=== PATIENT | male | born 1945 | race Caucasian/White ===

== ENCOUNTER 2017-05-24 11:08 | Inpatient (IN) | payer MEDICARE ==
[~2017-05-24] VITALS: Ht 180.3 cm; Wt 78.9 kg
[~2017-05-24 11:08] MED LIST: AMLO5TAB2 PO; ASPI-496 PO; CETI10TA24 PO; CHOL200024 PO; DOCU-180 PO; FLUO10TA PO; HYDR-3241 PO; LISI-170 PO; METO25TA35 PO; NAPR220T77 PO; OMEG-76 PO; OMEP-110 PO; OXYC-302 PO; SIMV20TA3 PO; TRAZ50TA18 PO; VITA1TAB19 PO
[2017-05-24] MEDS ORDERED: SODIUM CHLORIDE 0.9% 1,000 ML IV ONE (11:54)
[2017-05-24] MEDS ORDERED: SODIUM CHLORIDE FLUSH 10ML SYR IVF ONE (12:00)
[2017-05-24 12:25] LABS: BASOPHILS # (AUTO) 0.02 x10^3/uL (0-0.1); BASOPHILS % (AUTO) 0 % (0-1); EOSINOPHILS # (AUTO) 0.06 x10^3/uL (0-0.4); EOSINOPHILS % (AUTO) 1 % (1-7); LYMPHOCYTES % (AUTO) 10 % (22-44); MD NO; MEAN CORPUSCULAR HEMOGLOBIN 31.5 pg (27.5-34.5); MEAN CORPUSCULAR HGB CONC 34.2 g/dL (33.2-36.2); MEAN CORPUSCULAR VOLUME 92.2 fL (81-97); MEAN PLATELET VOLUME 8.3 fL (7.4-10.4); MONOCYTES # (AUTO) 0.64 x10^3/uL (0.2-0.8); MONOCYTES % (AUTO) 5 % (2-9); NEUTROPHILS # (AUTO) 10.14 x10^3/uL (1.8-6.8); NEUTROPHILS % (AUTO) 84 % (42-75); PLATELET COUNT 242 x10^3/uL (130-400); RED BLOOD COUNT 4.56 x10^6/uL (4.38-5.82); RED CELL DISTRIBUTION WIDTH 13.9 % (9.4-14.8)
[2017-05-24 12:30] LABS: INTERNATIONAL NORMALIZED RATIO 1.05 (0.93-1.1); PROTHROMBIN TIME 10.8 Seconds (9.6-11.5)
[2017-05-24 12:35] LABS: ALANINE AMINOTRANSFERASE 41 U/L (12-78); ALBUMIN 3.6 g/dL (3.4-5.0); ANION GAP 5 mmol/L (5-15); CALCIUM 8.7 mg/dL (8.5-10.1); CHLORIDE 108 mmol/L (98-107); CREATININE 1.09 mg/dL (0.7-1.3)
[2017-05-24 12:37] LABS: ALKALINE PHOSPHATASE 96 U/L (45-117); BILIRUBIN,TOTAL 0.7 mg/dL (0.2-1.0); TOTAL PROTEIN 7.4 g/dL (6.4-8.2)
[2017-05-24 12:45] LABS: MICROSCOPIC NOT IND
[2017-05-24 12:48] LABS: CULTURE INDICATED? NO
[2017-05-24] MEDS ORDERED: OMNIPAQUE 350 MG/ML, 100ML BOTTLE ONE (13:14)
[2017-05-24] MEDS ORDERED: HYDR-882 PO (13:21)
[2017-05-24 15:36] VITALS: BP 148/74
[2017-05-24] MEDS ORDERED: CIPROFLOXACIN/PMX 400MG/200ML 200 ML IV SCH (16:00)
[2017-05-24] MEDS: METRONIDAZOLE PMX 500MG/100ML 100 ML IV SCH (16:50)
[2017-05-24] MEDS: SODIUM CHLORIDE 0.9% 1,000 ML IV SCH (16:50)
[2017-05-24] MEDS ORDERED: DEXTROSE 5% IV SCH (17:30)
[2017-05-24] MEDS ORDERED: CIPROFLOXACIN LACTATE IV SCH (17:30)
[2017-05-24] MEDS: CIPROFLOXACIN/PMX 400MG/200ML 200 ML IV SCH (18:00)
[2017-05-24 18:15] VITALS: BP 162/76
[2017-05-24] MEDS ORDERED: METRONIDAZOLE PMX 500MG/100ML 100 ML IV SCH (20:00)
[2017-05-24 20:05] VITALS: BP 166/80
[2017-05-24] MEDS: SIMVASTATIN 20 MG TABLET PO SCH (21:22)
[2017-05-24] MEDS: TRAZODONE 50MG TABLET PO SCH (21:22)
[2017-05-24] MEDS: LISINOPRIL 20 MG TABLET PO SCH (21:22)
[2017-05-24 22:13] LABS: CLOSTRIDIUM DIFFICILE ANTIGEN NEGATIVE; CLOSTRIDIUM DIFFICILE TOXIN NEGATIVE (Negative)
[2017-05-25] MEDS: METRONIDAZOLE PMX 500MG/100ML 100 ML IV SCH ×3 (00:50→16:35)
[2017-05-25] MEDS: SODIUM CHLORIDE 0.9% 1,000 ML IV SCH ×3 (00:51→20:45)
[2017-05-25 01:54] VITALS: BP 100/62
[2017-05-25 05:45] LABS: BASOPHILS # (AUTO) 0.04 x10^3/uL (0-0.1); BASOPHILS % (AUTO) 0 % (0-1); EOSINOPHILS # (AUTO) 0.14 x10^3/uL (0-0.4); EOSINOPHILS % (AUTO) 1 % (1-7); LYMPHOCYTES # (AUTO) 2.15 x10^3/uL (1-3.4); LYMPHOCYTES % (AUTO) 21 % (22-44); MD NO; MEAN CORPUSCULAR HEMOGLOBIN 30.7 pg (27.5-34.5); MEAN CORPUSCULAR HGB CONC 33.1 g/dL (33.2-36.2); MEAN CORPUSCULAR VOLUME 92.8 fL (81-97); MEAN PLATELET VOLUME 8.4 fL (7.4-10.4); MONOCYTES % (AUTO) 10 % (2-9); NEUTROPHILS # (AUTO) 6.83 x10^3/uL (1.8-6.8); NEUTROPHILS % (AUTO) 67 % (42-75); PLATELET COUNT 216 x10^3/uL (130-400); RED BLOOD COUNT 4.26 x10^6/uL (4.38-5.82); RED CELL DISTRIBUTION WIDTH 14.7 % (9.4-14.8)
[2017-05-25 05:51] LABS: ALBUMIN 3.1 g/dL (3.4-5.0); ANION GAP 8 mmol/L (5-15); CHLORIDE 110 mmol/L (98-107)
[2017-05-25 05:56] LABS: ALANINE AMINOTRANSFERASE 30 U/L (12-78); ALKALINE PHOSPHATASE 77 U/L (45-117); BILIRUBIN,TOTAL 0.8 mg/dL (0.2-1.0); TOTAL PROTEIN 6.4 g/dL (6.4-8.2)
[2017-05-25] MEDS: CIPROFLOXACIN/PMX 400MG/200ML 200 ML IV SCH ×2 (06:14→18:02)
[2017-05-25 08:22] VITALS: BP 130/74
[2017-05-25] MEDS: OMEGA-3/FISH OIL CAPSULE PO SCH (08:38)
[2017-05-25] MEDS: LISINOPRIL 20 MG TABLET PO SCH ×2 (08:38→20:45)
[2017-05-25] MEDS: OMEPRAZOLE 20 MG CAPSULE.DR PO SCH (08:38)
[2017-05-25] MEDS: FLUOXETINE 10 MG CAP PO SCH (08:38)
[2017-05-25] MEDS: MULTIVITS,STRESS FORMULA 1 TABLET PO SCH (08:38)
[2017-05-25] MEDS: METOPROLOL TARTRATE 25 MG TABLET PO SCH (08:39)
[2017-05-25] MEDS: DOCUSATE 100 MG CAPSULE PO SCH (09:00)
[2017-05-25 14:12] VITALS: BP 92/52
[2017-05-25 19:12] VITALS: BP 129/73
[2017-05-25] MEDS: TRAZODONE 50MG TABLET PO SCH (20:45)
[2017-05-25] MEDS: SIMVASTATIN 20 MG TABLET PO SCH (20:46)
[2017-05-26] MEDS: METRONIDAZOLE PMX 500MG/100ML 100 ML IV SCH ×2 (00:59→08:28)
[2017-05-26 01:02] VITALS: BP 135/72
[2017-05-26] MEDS: SODIUM CHLORIDE 0.9% 1,000 ML IV SCH (05:30)
[2017-05-26 05:47] LABS: BASOPHILS # (AUTO) 0.03 x10^3/uL (0-0.1); BASOPHILS % (AUTO) 0 % (0-1); EOSINOPHILS # (AUTO) 0.31 x10^3/uL (0-0.4); EOSINOPHILS % (AUTO) 5 % (1-7); LYMPHOCYTES % (AUTO) 34 % (22-44); MD NO; MEAN CORPUSCULAR HEMOGLOBIN 32.3 pg (27.5-34.5); MEAN CORPUSCULAR HGB CONC 34.7 g/dL (33.2-36.2); MEAN CORPUSCULAR VOLUME 93.1 fL (81-97); MEAN PLATELET VOLUME 8.4 fL (7.4-10.4); MONOCYTES # (AUTO) 0.67 x10^3/uL (0.2-0.8); MONOCYTES % (AUTO) 10 % (2-9); NEUTROPHILS # (AUTO) 3.51 x10^3/uL (1.8-6.8); NEUTROPHILS % (AUTO) 52 % (42-75); PLATELET COUNT 182 x10^3/uL (130-400); RED BLOOD COUNT 3.63 x10^6/uL (4.38-5.82); RED CELL DISTRIBUTION WIDTH 14.1 % (9.4-14.8)
[2017-05-26] MEDS: CIPROFLOXACIN/PMX 400MG/200ML 200 ML IV SCH (05:54)
[2017-05-26 07:02] VITALS: BP 152/76
[2017-05-26] MEDS ORDERED: FERROUS GLUCONATE 324 MG TABLET PO SCH (08:00)
[2017-05-26] MEDS: DOCUSATE 100 MG CAPSULE PO SCH (08:28)
[2017-05-26] MEDS: LISINOPRIL 20 MG TABLET PO SCH (08:29)
[2017-05-26] MEDS: FLUOXETINE 10 MG CAP PO SCH (08:29)
[2017-05-26] MEDS: MULTIVITS,STRESS FORMULA 1 TABLET PO SCH (08:29)
[2017-05-26] MEDS: OMEGA-3/FISH OIL CAPSULE PO SCH (08:29)
[2017-05-26] MEDS: OMEPRAZOLE 20 MG CAPSULE.DR PO SCH (08:29)
[2017-05-26] MEDS: METOPROLOL TARTRATE 25 MG TABLET PO SCH (09:00)
[2017-05-26] MEDS ORDERED: SIMV20TA3 PO (11:36)
[2017-05-26] MEDS ORDERED: OMEP-110 PO (11:36)
[2017-05-26] MEDS ORDERED: FERR325T16 PO (11:36)
== END 2017-05-26 13:40 | disposition home health service (06) | DRG 377 ==
LOC: ED 13:11 → EDIP 13:58 → 4NOR 15:12 → 4WST 18:46 → DCLOUNGE 05-26 13:30
PROVIDERS: ADMIT Family Medicine; ATTEND Family Medicine
DX: K92.1 Melena (principal); K55.039 Acute (reversible) ischemia of large intestine, extent unspecified; I48.92 Unspecified atrial flutter; I77.4 Celiac artery compression syndrome; D50.9 Iron deficiency anemia, unspecified; F17.210 Nicotine dependence, cigarettes, uncomplicated; I25.10 Atherosclerotic heart disease of native coronary artery without angina pectoris; E78.5 Hyperlipidemia, unspecified; I10 Essential (primary) hypertension; I45.10 Unspecified right bundle-branch block; I77.1 Stricture of artery; K76.9 Liver disease, unspecified; Z79.82 Long term (current) use of aspirin; Z95.1 Presence of aortocoronary bypass graft; Z96.611 Presence of right artificial shoulder joint; H91.93 Unspecified hearing loss, bilateral
CPT/HCPCS: 36415; 74174; 80053; 81003; 83605; 83735; 85025; 85610; 86850; 86900; 87046; 87324; 87427; 93005; J0744; Q9967; 92523-GN; J7030